=== PATIENT | female | born 2000 | race Asian ===

== ENCOUNTER 2018-03-31 19:41 | Emergency (ER) | payer MEDICAID ==
[~2018-03-31] VITALS: Ht 160 cm; Wt 52.6 kg
[2018-03-31 20:02] VITALS: BP 139/93
[2018-03-31] MEDS ORDERED: IPRATROPIUM BROM 0.5 MG/2.5ML INH SOL NEB ONE (22:15)
[2018-03-31] MEDS ORDERED: methylPREDNISolone SOD SUCC 125 MG/2 ML VL IM ONE (22:15)
[2018-03-31] MEDS ORDERED: ALBUTEROL SULF 2.5 MG/0.5ML(0.5%) NEB SOLN NEB ONE (22:15)
== END 2018-03-31 22:41 | disposition home or self-care (01) ==
LOC: ER 19:41
DX: J45.909 Unspecified asthma, uncomplicated (principal)
CPT/HCPCS: 94640; 96372; 99283; J2930

== ENCOUNTER 2023-07-20 08:19 | Emergency (ER) | payer MEDICAID, OTHER ==
[~2023-07-20] VITALS: Ht 157.5 cm; Wt 53.8 kg
[2023-07-20 09:03] LABS: Basophils # (auto) 0 10 ^3/uL (0-0.2); Basophils % (auto) 0.4 % (0.0-2.0); Eosinophils # (auto) 0.4 10 ^3/uL (0-0.8); Eosinophils % (auto) 2.9 % (0.0-7.0); Hematocrit 41.2 % (36.0-46.0); Lymphocytes # (auto) 3.2 10 ^3/uL (0.4-5.4); Lymphocytes % (auto) 25.8 % (10.0-50.0); Mean Corpuscular Hemoglobin 30.5 pg (28.0-32.0); Mean Corpuscular Hgb Conc. 33.9 g/dL (32.0-36.0); Mean Corpuscular Volume 90.1 fL (80.0-100.0); Monocytes # (auto) 0.7 10 ^3/uL (0-1.3); Monocytes % (auto) 5.5 % (0.0-12.0); Neutrophils % (auto) 65.4 % (37.0-80.0); Nucleated Red Blood Cells % 0.1 %; Red Blood Cells 4.58 10^6/uL (4.0-5.20); Red Cell Distribution Width 12.3 % (11.8-14.3); White Blood Cell 12.2 10^3/uL (4.4-10.8)
[2023-07-20 09:08] LABS: Amphetamine Screen, Urine Neg (NEGATIVE); Barbiturate Scree,Urine Neg (NEGATIVE); Benzodiazephine Screen, Urine Neg (NEGATIVE); Cannabinoid Screen, Urine Neg (NEGATIVE); Cocaine Screen, Urine Neg (NEGATIVE); Opiate Scree,Urine Neg (NEGATIVE); Phencyclidine Screen, Urine Neg (NEGATIVE)
[2023-07-20 09:11] LABS: Alanine Aminotransferase 18 U/L (7-40); Alkaline Phosphatase 62 U/L (46-116); Anion Gap 8 (5-15); Aspartate Aminotransferase 21 U/L (13-40); BUN/Creatinine Ratio 12.7 (10.0-20.0); Blood Alcohol < 3.0 mg/dL (<10); Blood Urea Nitrogen 8 mg/dL (9-23); Calcium 8.9 mg/dL (8.7-10.4); Carbon Dioxide 25 mmol/L (20-30); Chloride 102 mmol/L (98-107); Glucose 99 mg/dL (74-106); Potassium 3.4 mmol/L (3.5-5.1); Sodium 135 mmol/L (136-145)
[2023-07-20 09:12] LABS: Acetaminophen < 2.0 UG/ML (10.0-20.0); Bilirubin, Total 0.6 mg/dL (0.2-1.0); Total Protein 8.1 g/dL (5.7-8.2)
[2023-07-20 09:15] LABS: Salicylate < 3.0 mg/dL (2.8-20.0)
[2023-07-20 12:14] LABS: Urine Bacteria FEW /hpf (None Seen); Urine Blood TRACE /uL (Negative); Urine Clarity Clear (Clear); Urine Protein, UAD Negative (Negative); Urine Specific Gravity 1.022 (1.001-1.035); Urine Urobilinogen Normal (Negative); Urine WBC 1 /hpf (0 - 5)
[2023-07-20 12:15] LABS: Urine Color Straw (Yellow)
[2023-07-21 04:34] LABS: COVID19 ANTIGEN SOFIA FIA NEGATIVE (NEGATIVE)
[2023-07-21] MEDS ORDERED: FAMOTIDINE 20 MG TAB PO ONE (06:45)
[2023-07-21 08:30] VITALS: PULSE 73; RESP 16; O2SAT 99
[2023-07-21 12:20] VITALS: BP 132/81; PULSE 74; RESP 14; TEMP 98.6; O2SAT 100
== END 2023-07-21 10:12 | disposition short-term general hospital (02) ==
LOC: ER 08:19
DX: T39.312A Poisoning by propionic acid derivatives, intentional self-harm, initial encounter (principal); J45.909 Unspecified asthma, uncomplicated; Z20.822 Contact with and (suspected) exposure to COVID-19; Y92.89 Other specified places as the place of occurrence of the external cause
CPT/HCPCS: 36415; 80053; 80307; 80320; 80329; 81001; 81025; 85025; 87426